=== PATIENT | female | born 1970 | race Caucasian/White ===

== ENCOUNTER 2018-05-26 20:58 | Inpatient (IN) | payer BC ==
[~2018-05-26] VITALS: Ht 165.1 cm; Wt 92.0 kg
[2018-05-26] MEDS ORDERED: KETOROLAC TROMETHAMINE 30 MG/ML VIAL IV STA (21:14)
[2018-05-26] MEDS ORDERED: ONDANSETRON INJ 2 MG/ML 2 ML VIAL IV STA (21:14)
[2018-05-26] MEDS ORDERED: SODIUM CHLORIDE 0.9% 1000ML 1,000 ML IV STA (21:14)
[2018-05-26 21:50] LABS: BASO % 0.1 %; BASO ABS # 0.01 K/uL (0-0.2); EOS % 1.5 %; EOS ABS # 0.12 K/uL (0-0.5); HEMATOCRIT 37.6 % (37-47); HEMOGLOBIN 12.7 g/dL (12.0-16.0); IG# 0.02 K/uL (0.00-0.02); LYMPH % 18.1 %; LYMPH ABS # 1.41 K/uL (1.2-3.4); MEAN CELL VOLUME 84.3 fL (80-100); MEAN CORPUSCULAR HEMOGLOBIN 28.5 pg (25-34); MEAN CORPUSCULAR HGB CONC 33.8 g/dl (32-36); MEAN PLATELET VOLUME 9.4 fL (7.4-10.4); MONO % 6.3 %; MONO ABS # 0.49 K/uL (0.11-0.59); NEUT % 73.7 %; NEUT ABS # 5.73 K/uL (1.4-6.5); PLATELET COUNT 193 K/uL (130-400); RED CELL DISTRIBUTION WIDTH CV 12.6 % (11.5-14.5); RED CELL DISTRIBUTION WIDTH SD 38.3 fL (36.4-46.3); WHITE BLOOD COUNT 7.78 K/uL (4.8-10.8)
[2018-05-26 22:01] LABS: ALBUMIN 3.6 gm/dl (3.4-5.0); CALCIUM 8.6 mg/dl (8.5-10.1); CREATININE 0.82 mg/dl (0.60-1.20); POTASSIUM 3.5 mmol/L (3.5-5.1)
[2018-05-26] MEDS ORDERED: NITR-5 PO (22:08)
[2018-05-26] MEDS ORDERED: PANT40TA PO (22:08)
[2018-05-26] MEDS ORDERED: PHEN-774 PO (22:08)
--- NOTE | 2018-05-26 22:19 | DIAGNOSTIC IMAGING REPORT ---
ADDENDUM IMPRESSION #5: Hepatosplenomegaly with hepatic steatosis. Electronically signed by: Vern Suarez M.D. 05/26/2018 10:35 PM Dictated Date/Time: 05/26/2018 10:35 PM ORIGINAL REPORT ABD/PELVIS WITHOUT FOR STONE HISTORY: 47 years-old Female flank pain acute bilateral flank pain COMPARISON: None available TECHNIQUE: Multiple axial CT images of the abdomen and pelvis were obtained without use of IV contrast. A dose lowering technique was used consistent with the principals of CARLEE. FINDINGS: Subsegmental groundglass and consolidative opacities about the left lung base is plugging noted within the left lower lobe. Mild right basilar atelectasis. 2 mm solid nodule of the basal right lower lobe, image 40 series 3 is likely benign. There is no pneumatosis or pneumoperitoneum identified. Imaged inferior cardiac chambers are unremarkable. Contracted gallbladder. Spleen measures up to 15 cm in length. Liver is enlarged and is mildly hypodense compared to the spleen. No intrahepatic biliary ductal dilation or focal hepatic mass lesions. Adrenal glands are unremarkable. There is mild stranding/edema noted about the distal pancreatic body and pancreatic tail with trace fluid noted within the anterior pararenal space. There is suggested mild interstitial edema about the pancreatic tail. No focal peripancreatic fluid collections or pancreatic ductal dilation. Kidneys, ureters are unremarkable. The bladder is partially decompressed. Prior hysterectomy. There are suggested follicular changes about the left adnexum. No aortic aneurysm. IVC appears unremarkable. There are no pathologically enlarged lymph nodes identified. Small duodenal diverticulum. No bowel obstruction or focal bowel wall thickening. Terminal ileum appears normal. The appendix is not definitively seen. No secondary signs of acute appendicitis. Tiny fat filled periumbilical hernia. Bones of the chest appear intact. IMPRESSION: 1. Mild edema within the anterior pararenal space, notably about the pancreatic tail suggests acute edematous pancreatitis. No acute pancreatic fluid collection identified. Correlate with lipase level. 2. No renal calculi or obstructive uropathy. 3. Mild mucous plugging of the left lower lobe with subsegmental groundglass opacities suggests atelectasis or pneumonitis. 4. Prior hysterectomy. The above report was generated using voice recognition software. It may contain grammatical, syntax or spelling errors. Electronically signed by: Vern Suarez M.D. 05/26/2018 10:18 PM Dictated Date/Time: 05/26/2018 10:06 PM
--- NOTE | 2018-05-26 22:38 | DIAGNOSTIC IMAGING REPORT ---
GALLBLADDER-ABD LIMITED HISTORY: 47 years-old Female abd pain nausea acute right upper quadrant abdominal pain with nausea COMPARISON: CT of same day TECHNIQUE: Multiple real-time sonographic images of the abdominal right upper quadrant were obtained assessing grayscale appearance and color flow FINDINGS: Pancreas is mostly obscured by bowel gas. Liver appears enlarged. There is increased echogenicity of the liver with poor through transmission compatible with fatty infiltration. No intrahepatic biliary ductal dilation. Common bile duct is normal, 4 mm. Contracted gallbladder. No shadowing cholelithiasis or pericholecystic fluid. Sonographic Sloan sign reported as negative. Imaged right kidney is unremarkable measuring up to 11.9 cm in length. IMPRESSION: 1. Contracted gallbladder without cholelithiasis or sonographic evidence of acute cholecystitis. 2. Hepatomegaly with hepatic steatosis. 3. No biliary ductal dilation. The above report was generated using voice recognition software. It may contain grammatical, syntax or spelling errors. Electronically signed by: Vern Suarez M.D. 05/26/2018 10:37 PM Dictated Date/Time: 05/26/2018 10:32 PM
[2018-05-26] MEDS ORDERED: PIPERACILLIN/TAZOBACTAM 3.375 GM/100ML D5W IV STA (22:58)
--- NOTE | 2018-05-26 23:19 | EMERGENCY ROOM VISIT NOTE ---
History First contact with patient: 21:07 Chief Complaint: GI ASSESSMENT Stated Complaint: BACK PAIN,STOMACH PAIN, NAUSEA,CONSTIPATION, CARDONA Nursing Triage Summary: c/o abd pain constipation uti symptoms and cardona. History of Present Illness The patient is a 47 year old female who presents to the Emergency Room with complaints of back pain for 1 week. The patient states P yesterday and told she had a urinary tract infection. She was started on Macrobid. She had a couple of doses. She reports some associated nausea with her symptoms. She also reports that her symptoms seem to worsen with p.o. intake and she gets a bloated and constipated feeling in her upper abdomen. Patient denies any fevers. No diarrhea. Her last normal bowel movement was 3-4 days ago. She reports decreased p.o. intake because of nausea and decreased appetite for the past couple of days. Symptoms are moderate. Review of Systems As above otherwise negative for 10 systems Past Medical/Surgical History None Social History Smoking Status: Never Smoker Current/Historical Medications Scheduled Nitrofurantoin Monohyd Macrocr (Macrobid), 100 MG PO Q6 Scheduled PRN Pantoprazole (Protonix), 40 MG PO QPM PRN for ACID REFLUX Phenazopyridine Hcl (Pyridium), 100 MG PO TID PRN for Bladder pain Physical Exam Vital Signs Date Time Temp Pulse Resp B/P (MAP) Pulse Ox O2 Delivery O2 Flow Rate FiO2 05/26/18 21:56 88 18 112/66 98 Room Air 05/26/18 21:02 36.7 85 18 115/62 95 Room Air Physical Exam CONSTITUTIONAL/VITAL SIGNS: Reviewed / noted above. GENERAL: Non-toxic in appearance. INTEGUMENTARY: Warm, dry, and [place]. HEAD: Normocephalic. EYES: without scleral icterus or trauma. ENT/OROPHARYNX: clear and moist. LYMPHADENOPATHY/NECK: Is supple without lymphadenopathy or meningismus. RESPIRATORY: Lungs clear and equal. CARDIOVASCULAR: Regular rate and rhythm. GI/ABDOMEN: Soft and nontender. No organomegaly or pulsatile mass. No rebound or guarding. Normal bowel sounds. EXTREMITIES: Warm and well perfused. BACK: No CVA tenderness. NEUROLOGICAL: Intact without focal deficits. PSYCHIATRIC: normal affect. MUSCULOSKELETAL: Normally developed with good muscle tone. TRIAGE NURSING DOCUMENTATION REVIEWED. Medical Decision & Procedures ER Provider Diagnostic Interpretation: CT ABD/Pelvis: IMPRESSION: 1. Mild edema within the anterior pararenal space, notably about the pancreatic tail suggests acute edematous pancreatitis. No acute pancreatic fluid collection identified. Correlate with lipase level. 2. No renal calculi or obstructive uropathy. 3. Mild mucous plugging of the left lower lobe with subsegmental groundglass opacities suggests atelectasis or pneumonitis. 4. Prior hysterectomy. GALLBLADDER-ABD LIMITED HISTORY: 47 years-old Female abd pain nausea acute right upper quadrant abdominal pain with nausea COMPARISON: CT of same day TECHNIQUE: Multiple real-time sonographic images of the abdominal right upper quadrant were obtained assessing grayscale appearance and color flow FINDINGS: Pancreas is mostly obscured by bowel gas. Liver appears enlarged. There is increased echogenicity of the liver with poor through transmission compatible with fatty infiltration. No intrahepatic biliary ductal dilation. Common bile duct is normal, 4 mm. Contracted gallbladder. No shadowing cholelithiasis or pericholecystic fluid. Sonographic Sloan sign reported as negative. Imaged right kidney is unremarkable measuring up to 11.9 cm in length. IMPRESSION: 1. Contracted gallbladder without cholelithiasis or sonographic evidence of acute cholecystitis. 2. Hepatomegaly with hepatic steatosis. 3. No biliary ductal dilation. Laboratory Results 05/26/18 21:29 Red Blood Count 4.46, Mean Corpuscular Volume 84.3, Mean Corpuscular Hemoglobin 28.5, Mean Corpuscular Hemoglobin Concent 33.8, Mean Platelet Volume 9.4, Neutrophils (%) (Auto) 73.7, Lymphocytes (%) (Auto) 18.1, Monocytes (%) (Auto) 6.3, Eosinophils (%) (Auto) 1.5, Basophils (%) (Auto) 0.1, Neutrophils # (Auto) 5.73, Lymphocytes # (Auto) 1.41, Monocytes # (Auto) 0.49, Eosinophils # (Auto) 0.12, Basophils # (Auto) 0.01 05/26/18 21:29 Test 05/26/18 21:29 White Blood Count 7.78 K/uL (4.8-10.8) Red Blood Count 4.46 M/uL (4.2-5.4) Hemoglobin 12.7 g/dL (12.0-16.0) Hematocrit 37.6 % (37-47) Mean Corpuscular Volume 84.3 fL (80-100) Mean Corpuscular Hemoglobin 28.5 pg (25-34) Mean Corpuscular Hemoglobin Concent 33.8 g/dl (32-36) Platelet Count 193 K/uL (130-400) Mean Platelet Volume 9.4 fL (7.4-10.4) Neutrophils (%) (Auto) 73.7 % Lymphocytes (%) (Auto) 18.1 % Monocytes (%) (Auto) 6.3 % Eosinophils (%) (Auto) 1.5 % Basophils (%) (Auto) 0.1 % Neutrophils # (Auto) 5.73 K/uL (1.4-6.5) Lymphocytes # (Auto) 1.41 K/uL (1.2-3.4) Monocytes # (Auto) 0.49 K/uL (0.11-0.59) Eosinophils # (Auto) 0.12 K/uL (0-0.5) Basophils # (Auto) 0.01 K/uL (0-0.2) RDW Standard Deviation 38.3 fL (36.4-46.3) RDW Coefficient of Variation 12.6 % (11.5-14.5) Immature Granulocyte % (Auto) 0.3 % Immature Granulocyte # (Auto) 0.02 K/uL (0.00-0.02) Urine Color ORANGE Urine Appearance CLOUDY (CLEAR) Urine pH 5.0 (4.5-7.5) Urine Specific [place] 1.024 (1.000-1.030) Urine Protein TRACE (NEG) Urine Glucose (UA) NEG (NEG) Urine Ketones NEG (NEG) Urine Occult Blood NEG (NEG) Urine Nitrite POS (NEG) Urine Bilirubin NEG (NEG) Urine Urobilinogen NEG (NEG) Urine Leukocyte Esterase MODERATE (NEG) Urine WBC (Auto) 10-30 /hpf (0-5) Urine RBC (Auto) 0-4 /hpf (0-4) Urine Hyaline Casts (Auto) 1-5 /lpf (0-5) Urine Epithelial Cells (Auto) >30 /lpf (0-5) Urine Bacteria (Auto) NEG (NEG) Urine Yeast (Auto) BUDDING (NONE PRSENT) Urine Test NEG (NEG) Anion Gap 9.0 mmol/L (3-11) Est Creatinine Clear Calc Drug Dose 96.1 ml/min Estimated GFR () 99.5 Estimated GFR (Non- 85.8 BUN/Creatinine Ratio 12.6 (10-20) Calcium Level 8.6 mg/dl (8.5-10.1) Total Bilirubin 0.5 mg/dl (0.2-1) Direct Bilirubin 0.1 mg/dl (0-0.2) Aspartate Amino Transf (AST/SGOT) 39 U/L (15-37) Alanine Aminotransferase (ALT/SGPT) 79 U/L (12-78) Alkaline Phosphatase 80 U/L (45-117) Total Protein 7.0 gm/dl (6.4-8.2) Albumin 3.6 gm/dl (3.4-5.0) Lipase 2238 U/L (73-393) Medications Administered Medications (Trade) Dose Ordered Sig/Rere Route Start Time Stop Time Status Last Admin Dose Admin Sodium Chloride 1,000 ml @ 999 mls/hr Q1H1M STAT IV 05/26/18 21:14 05/26/18 22:14 DC 05/26/18 21:31 999 MLS/HR Ondansetron HCl (Zofran Inj) 4 mg NOW STAT IV 05/26/18 21:14 05/26/18 21:17 DC 05/26/18 21:31 4 MG Ketorolac Tromethamine (Toradol Inj) 15 mg NOW STAT IV 05/26/18 21:14 05/26/18 21:17 DC 05/26/18 21:31 15 MG ED Course The patient was given IV fluids, IV Zofran, IV Toradol and IV Zosyn. Medical Decision Differential considered: pancreatitis, hepatitis, acute cholecystitis, AAA, UTI , pyelonephritis, kidney stones, appendicitis, diverticulitis, shingles, bowel obstruction, mesenteric ischemia, intussusception,hernia. The patient is a 47 year old female who presents to the Emergency Room with complaints of back pain for 1 week. The patient states P yesterday and told she had a urinary tract infection. She was started on Macrobid. She had a couple of doses. She reports some associated nausea with her symptoms. She also reports that her symptoms seem to worsen with p.o. intake and she gets a bloated and constipated feeling in her upper abdomen. Patient denies any fevers. No diarrhea. Her last normal bowel movement was 3-4 days ago. She reports decreased p.o. intake because of nausea and decreased appetite for the past couple of days. Gallbladder ultrasound was negative, CT scan of the abdomen pelvis reveals findings suggesting mild pancreatitis in the tail the pancreas. Lipase was elevated at 2238. AST and ALT are slightly elevated. CBC was normal, test was negative. Urine reveals positive nitrite but no bacteria. This could be related to a partially treated UTI. The patient was given IV dose of Zosyn for this. She was also given some IV fluids , IV Toradol and IV Zofran for her symptoms. She will be seen by the hospitalist service for further inpatient evaluation. Medication Reconcilliation Current Medication List: was personally reviewed by dc Blood Pressure Screening Patient's blood pressure: Normal blood pressure Impression Primary Impression: Pancreatitis Additional Impression: UTI (urinary tract infection) Departure Information Dispostion Being Evaluated By Hospitalist Referrals Micah Paulson D.O. (PCP) Patient Instructions My [facility] Problem Qualifiers
[2018-05-26] MEDS ORDERED: MoRPHine SULFATE 2 MG/ML CARP IV PRN (23:45)
[2018-05-26] MEDS ORDERED: ONDANSETRON INJ 2 MG/ML 2 ML VIAL IV PRN (23:45)
--- NOTE | 2018-05-27 00:10 | History and Physical ---
History & Physical Date & Time of Service: May 26, 2018 at 23:55 Chief Complaint: Back Pain,Stomach Pain, Nausea,Constipation, Ramírez Primary Care Physician: Micah Paulson D.O. History of Present Illness Source: patient Patient is a 47yo female with history of GERD presenting with back and abdominal pain x 1 week as well as bloating, nausea and constipation. Symptoms worsen with po intake. She also feels bloating and fullness in her upper abdomen. Patient has been seen by her PCP recently and diagnosed with a UTI. She was started on Ciprofloxacin which she took for three days and was transitioned to Macrobid q 6 hours yesterday and Pyridium. Her pain now is predominantly left flank with radiation to under left breast. CT Abdomen was performed in the ER which revealed edema around the pancreatic tail suggestive of acute pancreatitis. No fluid collection. Lipase elevated at 2238. Patient has no history of gallbladder disease, does not drink EtOH. Presently feeling well. Pain improved. ER Course: Zosyn 3.375 gm, NSS x 1 liter, Zofran 4mg, Toradol Past Medical/Surgical History Past Medical History: GERD Past Surgical History: Hysterectomy for DUB and endometriosis Right knee Breast reduction Family History FH: cancer FH: diabetes mellitus Valvular heart disease Social History Smoking Status: Never Smoker Smokeless Tobacco Use: No Alcohol Use: none Drug Use: none Marital Status: Housing status: lives with family Occupational Status: employed Allergies Coded Allergies: No Known Allergies (Unverified , 05/26/18) Home Medications Scheduled Nitrofurantoin Monohyd Macrocr (Macrobid), 100 MG PO Q6 Scheduled PRN Pantoprazole (Protonix), 40 MG PO QPM PRN for ACID REFLUX Phenazopyridine Hcl (Pyridium), 100 MG PO TID PRN for Bladder pain Review of Systems Constitutional: No fever, No chills, No sweats, No weight loss, No weakness, No fatigue Eyes: No worsening of vision ENT: No hearing loss Respiratory: No cough, No sputum, No wheezing, No shortness of breath Cardiovascular: No chest pain, No palpitations Abdomen: + pain, + nausea, + constipation, No vomiting, No diarrhea Musculoskeletal: No joint pain Genitourinary - Female: No dysuria, No urinary frequency, No urinary urgency Neurologic: No weakness Endocrine: No fatigue Hematologic / Lymphatic: No abnormal bleeding/bruising Integumentary: No rash Physical Exam Vital Signs Date Time Temp Pulse Resp B/P (MAP) Pulse Ox O2 Delivery O2 Flow Rate FiO2 05/26/18 23:13 84 18 106/67 95 Room Air 05/26/18 21:56 88 18 112/66 98 Room Air 05/26/18 21:02 36.7 85 18 115/62 95 Room Air General Appearance: WD/WN, no apparent distress Head: normocephalic, atraumatic Eyes: PERRL, EOMI, sclerae normal ENT: normal ENT inspection, pharynx normal Neck: supple, no adenopathy, trachea midline Respiratory/Chest: chest non-tender, lungs clear, normal breath sounds, no respiratory distress, no accessory muscle use Cardiovascular: regular rate, rhythm, no edema, no gallop, no murmur, normal peripheral pulses Abdomen/GI: normal bowel sounds, soft, no organomegaly, + pertinent finding ( tenderness with palpation of LUQ and flank, no rebound/guarding or peritoneal signs) Diagnostics Laboratory Results Results Past 24 Hours Test 05/26/18 21:29 Range/Units White Blood Count 7.78 4.8-10.8 K/uL Red Blood Count 4.46 4.2-5.4 M/uL Hemoglobin 12.7 12.0-16.0 g/dL Hematocrit 37.6 37-47 % Mean Corpuscular Volume 84.3 80-100 fL Mean Corpuscular Hemoglobin 28.5 25-34 pg Mean Corpuscular Hemoglobin Concent 33.8 32-36 g/dl Platelet Count 193 130-400 K/uL Mean Platelet Volume 9.4 7.4-10.4 fL Neutrophils (%) (Auto) 73.7 % Lymphocytes (%) (Auto) 18.1 % Monocytes (%) (Auto) 6.3 % Eosinophils (%) (Auto) 1.5 % Basophils (%) (Auto) 0.1 % Neutrophils # (Auto) 5.73 1.4-6.5 K/uL Lymphocytes # (Auto) 1.41 1.2-3.4 K/uL Monocytes # (Auto) 0.49 0.11-0.59 K/uL Eosinophils # (Auto) 0.12 0-0.5 K/uL Basophils # (Auto) 0.01 0-0.2 K/uL RDW Standard Deviation 38.3 36.4-46.3 fL RDW Coefficient of Variation 12.6 11.5-14.5 % Immature Granulocyte % (Auto) 0.3 % Immature Granulocyte # (Auto) 0.02 0.00-0.02 K/uL Urine Color ORANGE Urine Appearance CLOUDY CLEAR Urine pH 5.0 4.5-7.5 Urine Specific [place] 1.024 1.000-1.030 Urine Protein TRACE NEG Urine Glucose (UA) NEG NEG Urine Ketones NEG NEG Urine Occult Blood NEG NEG Urine Nitrite POS NEG Urine Bilirubin NEG NEG Urine Urobilinogen NEG NEG Urine Leukocyte Esterase MODERATE NEG Urine WBC (Auto) 10-30 0-5 /hpf Urine RBC (Auto) 0-4 0-4 /hpf Urine Hyaline Casts (Auto) 1-5 0-5 /lpf Urine Epithelial Cells (Auto) >30 0-5 /lpf Urine Bacteria (Auto) NEG NEG Urine Yeast (Auto) BUDDING NONE PRSENT Urine Test NEG NEG Sodium Level 141 136-145 mmol/L Potassium Level 3.5 3.5-5.1 mmol/L Chloride Level 105 98-107 mmol/L Carbon Dioxide Level 26 21-32 mmol/L Anion Gap 9.0 3-11 mmol/L Blood Urea Nitrogen 10 7-18 mg/dl Creatinine 0.82 0.60-1.20 mg/dl Est Creatinine Clear Calc Drug Dose 96.1 ml/min Estimated GFR () 99.5 Estimated GFR (Non- 85.8 BUN/Creatinine Ratio 12.6 10-20 Random Glucose 135 70-99 mg/dl Calcium Level 8.6 8.5-10.1 mg/dl Total Bilirubin 0.5 0.2-1 mg/dl Direct Bilirubin 0.1 0-0.2 mg/dl Aspartate Amino Transf (AST/SGOT) 39 15-37 U/L Alanine Aminotransferase (ALT/SGPT) 79 12-78 U/L Alkaline Phosphatase 80 45-117 U/L Total Protein 7.0 6.4-8.2 gm/dl Albumin 3.6 3.4-5.0 gm/dl Lipase 2238 73-393 U/L Microbiology Results 05/26/18 Urine Culture, Received Pending Impression Assessment and Plan 47yo female with history of GERD presenting with back and abdominal pain found with acute pancreatitis 1. Acute Pancreatitis - elevated lipase, CT evidence of pancreatic tail inflammation. Etiology unclear. Patient with no gallstones, no EtOH. Was recently treated for UTI with Cipro then Macrobid and Pyridium - possibly medication induced but occurrence of Macrobid induced pancreatitis is low -Admit to medical floor -NPO except chips and sips for now - advance diet as tolerated -Pain control with Morphin 1mg IV q 4 hours PRN -Nausea control with Zofran PRN 2. Presumed UTI - Nitrite positive UA, patient with mild suprapubic discomfort -Check urine culture -Ceftriaxone 1 gm IV daily for uncomplicated UTI 3. GERD - stable, chronic -Protonix 40mg IV daily. 4. F/E/N- NSS at 100mL/hr x 2 liters, monitor electrolytes and replete as needed, NPO for now, advance diet as tolerated 5. Ppx - Lovenox for DVT prophylaxis 6. Code - Full per discussion with patient 7. Dispo - admit to medical floor Resuscitation Status FULL VTE Prophylaxis Will order VTE Prophylaxis: Yes
[2018-05-27 01:45] VITALS: BP 98/59; PULSE 69; TEMP 36.5; O2SAT 95; Ht 165.1 cm; Wt 92.0 kg
[2018-05-27] MEDS: SODIUM CHLORIDE 0.9% 1000ML 1,000 ML IV SCH ×2 (02:44→08:36)
[2018-05-27] MEDS: CEFTRIAXONE SOD INJ 1 GM in DEXTROSE 5% ADD-VANTAGE 50ML 50 ML IV SCH (05:38)
[2018-05-27] MEDS ORDERED: IV FLUIDS COMPLETED PRN (06:30)
[2018-05-27 06:38] LABS: BASO % 0.3 %; BASO ABS # 0.02 K/uL (0-0.2); EOS % 2.4 %; EOS ABS # 0.18 K/uL (0-0.5); HEMATOCRIT 35.6 % (37-47); HEMOGLOBIN 11.6 g/dL (12.0-16.0); IG# 0.03 K/uL (0.00-0.02); LYMPH % 17.3 %; LYMPH ABS # 1.31 K/uL (1.2-3.4); MEAN CELL VOLUME 85.6 fL (80-100); MEAN CORPUSCULAR HEMOGLOBIN 27.9 pg (25-34); MEAN CORPUSCULAR HGB CONC 32.6 g/dl (32-36); MEAN PLATELET VOLUME 9.3 fL (7.4-10.4); MONO % 6.9 %; MONO ABS # 0.52 K/uL (0.11-0.59); NEUT % 72.7 %; NEUT ABS # 5.52 K/uL (1.4-6.5); PLATELET COUNT 171 K/uL (130-400); RED CELL DISTRIBUTION WIDTH CV 12.7 % (11.5-14.5); RED CELL DISTRIBUTION WIDTH SD 39.4 fL (36.4-46.3); WHITE BLOOD COUNT 7.58 K/uL (4.8-10.8)
[2018-05-27 07:06] VITALS: BP 118/64; PULSE 86; TEMP 36.9; O2SAT 95
[2018-05-27 07:07] LABS: CREATININE 0.88 mg/dl (0.60-1.20)
[2018-05-27 07:08] LABS: CALCIUM 7.9 mg/dl (8.5-10.1); POTASSIUM 4.2 mmol/L (3.5-5.1)
[2018-05-27] MEDS: ENOXAPARIN 40 MG/0.4 ML SYR SQ SCH (08:33)
[2018-05-27] MEDS: PANTOprazole INJ 40 MG in SYRINGE 0 ML IV SCH (11:24)
--- NOTE | 2018-05-27 11:29 | Progress Note ---
Subjective Date of Service: May 27, 2018. Subjective Pt evaluation today including: conversation w/ patient, physical exam 47 yo female who is here for back pain likely from pancreatitis. Patient reports pain has improved today, however today when I was examining her she states that the pain returned. Pain however is short lived and less severe. She reports the pain radiates from her back and wraps around her ribs to the front of her abdomen (epigastrium) Patient reports that she is also constipated and has not had BM in last 4 days. Problem List Medical Problems: (1) Pancreatitis Status: Acute (2) UTI (urinary tract infection) Status: Acute Review of Systems Constitutional: No fever, No chills Eyes: No worsening of vision ENT: No hearing loss Respiratory: No cough Cardiac: No chest pain Abdomen: No pain, No nausea Musculoskeletal: + problem reported (back pain) Female : No dysuria Neurologic: No memory loss Psychiatric: No depression symptoms Heme: No abnormal bleeding/bruising Skin: No rash All Other Systems: Reviewed and Negative Objective Vital Signs Date Time Temp Pulse Resp B/P (MAP) Pulse Ox O2 Delivery O2 Flow Rate FiO2 05/27/18 08:00 Room Air 05/27/18 07:06 36.9 86 18 118/64 (82) 95 Room Air 05/27/18 01:45 36.5 69 20 98/59 95 Room Air 05/27/18 00:56 76 18 107/71 98 05/26/18 23:13 84 18 106/67 95 Room Air 05/26/18 21:56 88 18 112/66 98 Room Air 05/26/18 21:02 36.7 85 18 115/62 95 Room Air Physical Exam General Appearance: WD/WN, no apparent distress Eyes: normal inspection ENT: normal ENT inspection Neck: supple, no adenopathy Respiratory/Chest: chest non-tender, lungs clear Cardiovascular: regular rate, rhythm, no edema Abdomen: normal bowel sounds, non tender, soft Extremities: normal range of motion, non-tender Skin: normal color Lymphatic: no adenopathy Laboratory Results Last 24 Hours Test 05/26/18 21:29 05/27/18 06:06 White Blood Count 7.78 K/uL 7.58 K/uL Red Blood Count 4.46 M/uL 4.16 M/uL Hemoglobin 12.7 g/dL 11.6 g/dL Hematocrit 37.6 % 35.6 % Mean Corpuscular Volume 84.3 fL 85.6 fL Mean Corpuscular Hemoglobin 28.5 pg 27.9 pg Mean Corpuscular Hemoglobin Concent 33.8 g/dl 32.6 g/dl Platelet Count 193 K/uL 171 K/uL Mean Platelet Volume 9.4 fL 9.3 fL Neutrophils (%) (Auto) 73.7 % 72.7 % Lymphocytes (%) (Auto) 18.1 % 17.3 % Monocytes (%) (Auto) 6.3 % 6.9 % Eosinophils (%) (Auto) 1.5 % 2.4 % Basophils (%) (Auto) 0.1 % 0.3 % Neutrophils # (Auto) 5.73 K/uL 5.52 K/uL Lymphocytes # (Auto) 1.41 K/uL 1.31 K/uL Monocytes # (Auto) 0.49 K/uL 0.52 K/uL Eosinophils # (Auto) 0.12 K/uL 0.18 K/uL Basophils # (Auto) 0.01 K/uL 0.02 K/uL RDW Standard Deviation 38.3 fL 39.4 fL RDW Coefficient of Variation 12.6 % 12.7 % Immature Granulocyte % (Auto) 0.3 % 0.4 % Immature Granulocyte # (Auto) 0.02 K/uL 0.03 K/uL Urine Color ORANGE Urine Appearance CLOUDY Urine pH 5.0 Urine Specific [place] 1.024 Urine Protein TRACE Urine Glucose (UA) NEG Urine Ketones NEG Urine Occult Blood NEG Urine Nitrite POS Urine Bilirubin NEG Urine Urobilinogen NEG Urine Leukocyte Esterase MODERATE Urine WBC (Auto) 10-30 /hpf Urine RBC (Auto) 0-4 /hpf Urine Hyaline Casts (Auto) 1-5 /lpf Urine Epithelial Cells (Auto) >30 /lpf Urine Bacteria (Auto) NEG Urine Yeast (Auto) BUDDING Urine Test NEG Sodium Level 141 mmol/L 141 mmol/L Potassium Level 3.5 mmol/L 4.2 mmol/L Chloride Level 105 mmol/L 110 mmol/L Carbon Dioxide Level 26 mmol/L 25 mmol/L Anion Gap 9.0 mmol/L 6.0 mmol/L Blood Urea Nitrogen 10 mg/dl 12 mg/dl Creatinine 0.82 mg/dl 0.88 mg/dl Est Creatinine Clear Calc Drug Dose 96.1 ml/min 89.5 ml/min Estimated GFR () 99.5 91.3 Estimated GFR (Non- 85.8 78.8 BUN/Creatinine Ratio 12.6 13.2 Random Glucose 135 mg/dl 133 mg/dl Calcium Level 8.6 mg/dl 7.9 mg/dl Phosphorus Level 5.0 mg/dl Magnesium Level 2.2 mg/dl Total Bilirubin 0.5 mg/dl Direct Bilirubin 0.1 mg/dl Aspartate Amino Transf (AST/SGOT) 39 U/L Alanine Aminotransferase (ALT/SGPT) 79 U/L Alkaline Phosphatase 80 U/L Total Protein 7.0 gm/dl Albumin 3.6 gm/dl Lipase 2238 U/L Prothrombin Time 10.1 SECONDS Prothromb Time International Ratio 1.0 Assessment and Plan 47yo female with history of GERD presenting with back and abdominal pain found with acute pancreatitis 1. Acute Pancreatitis - elevated lipase, CT evidence of pancreatic tail inflammation. Etiology unclear. Patient with no gallstones, no EtOH. Was recently treated for UTI with Cipro then Macrobid and Pyridium - possibly medication induced but occurrence of Macrobid induced pancreatitis is low -Admit to medical floor -NPO except chips and sips for now - advance diet as tolerated -Pain control with Morphin 1mg IV q 4 hours PRN -Nausea control with Zofran PRN -patient continues to have pain today but is less severe. Will transition her to clear liquid diet at dinner. Likely discharge in AM. Will also start miralax for constipation -may consider lactulose tomorrow if no BM. 2. Presumed UTI - Nitrite positive UA, patient with mild suprapubic discomfort -Checked urine culture -Ceftriaxone 1 gm IV daily for uncomplicated UTI 3. GERD - stable, chronic -Protonix 40mg IV daily. 4. F/E/N- NSS at 100mL/hr x 2 liters, monitor electrolytes and replete as needed, NPO for now, clear liquid for dinner, advance diet as tolerated 5. Ppx - Lovenox for DVT prophylaxis 6. Code - Full per discussion with patient
[2018-05-27] MEDS ORDERED: NURSING DECISION MEDICATION ORDER SCH (11:30)
[2018-05-27] MEDS ORDERED: POLYETHYLENE (MIRALAX) 17 GM PACK PO ONE (11:45)
[2018-05-27] MEDS ORDERED: POLYETHYLENE (MIRALAX) 17 GM PACK PO PRN (11:45)
[2018-05-27 15:19] VITALS: BP 101/66; PULSE 32; PULSE 82; TEMP 36.9; O2SAT 96
[2018-05-27 23:08] VITALS: BP 98/60; PULSE 78; TEMP 36.6; O2SAT 96
[2018-05-27] MEDS: KETOROLAC TROMETHAMINE 15 MG/ML VIAL IV PRN (23:32)
[2018-05-28] MEDS: CEFTRIAXONE SOD INJ 1 GM in DEXTROSE 5% ADD-VANTAGE 50ML 50 ML IV SCH (06:04)
[2018-05-28 07:51] VITALS: BP 104/72; PULSE 70; TEMP 36.7; O2SAT 97
[2018-05-28 08:41] LABS: BASO % 0.2 %; BASO ABS # 0.01 K/uL (0-0.2); EOS % 2.5 %; EOS ABS # 0.14 K/uL (0-0.5); HEMATOCRIT 36.6 % (37-47); HEMOGLOBIN 12.1 g/dL (12.0-16.0); IG# 0.02 K/uL (0.00-0.02); LYMPH % 14.5 %; LYMPH ABS # 0.81 K/uL (1.2-3.4); MEAN CELL VOLUME 85.7 fL (80-100); MEAN CORPUSCULAR HEMOGLOBIN 28.3 pg (25-34); MEAN CORPUSCULAR HGB CONC 33.1 g/dl (32-36); MEAN PLATELET VOLUME 9.1 fL (7.4-10.4); MONO % 4.8 %; MONO ABS # 0.27 K/uL (0.11-0.59); NEUT % 77.6 %; NEUT ABS # 4.32 K/uL (1.4-6.5); PLATELET COUNT 167 K/uL (130-400); RED CELL DISTRIBUTION WIDTH CV 12.5 % (11.5-14.5); RED CELL DISTRIBUTION WIDTH SD 39.1 fL (36.4-46.3); WHITE BLOOD COUNT 5.57 K/uL (4.8-10.8)
[2018-05-28] MEDS: ENOXAPARIN 40 MG/0.4 ML SYR SQ SCH (08:42)
[2018-05-28 09:12] LABS: CALCIUM 8.4 mg/dl (8.5-10.1); CREATININE 0.83 mg/dl (0.60-1.20); POTASSIUM 3.7 mmol/L (3.5-5.1); TOTAL PROTEIN 6.4 gm/dl (6.4-8.2)
[2018-05-28] MEDS ORDERED: SOD PHOSPHATE/SOD BIPHOSPHATE ENEMA 132 ML BTL PR STA (11:10)
[2018-05-28] MEDS: SODIUM CHLORIDE 0.9% 1000ML 1,000 ML IV SCH ×3 (11:32→23:36)
[2018-05-28] MEDS: PANTOprazole INJ 40 MG in SYRINGE 0 ML IV SCH (11:32)
[2018-05-28] MEDS ORDERED: FLUCONAZOLE / NSS 100 MG in PREMIXED NSS 50 ML IV ONE (15:30)
[2018-05-28 15:38] VITALS: BP 112/73; PULSE 75; TEMP 36.8; O2SAT 94
--- NOTE | 2018-05-28 15:38 | Progress Note ---
Subjective Date of Service: May 28, 2018. Subjective Pt evaluation today including: conversation w/ patient, physical exam, lab review, review of inpatient medication list Pain: mild back pain and abdominal pain PO Intake: clear liquids Voiding: no voiding problems patient feeling okay but not a lot better, still with the back pain that she presented with felt nauseated with trying clears, had a severe headache reviewed labs, lipase trending down but still high at 1690 checked triglycerides, normal urine culture grew out Melony, changed Rocephin to Diflucan Problem List Medical Problems: (1) Pancreatitis Status: Acute (2) UTI (urinary tract infection) Status: Acute Review of Systems Constitutional: + weakness, + fatigue Abdomen: + pain, + nausea Musculoskeletal: + joint pain (middle back pain) Female : + dysuria All Other Systems: Reviewed and Negative Medications Current Inpatient Medications Medications (Trade) Dose Ordered Sig/Rere Route Start Time Stop Time Status Last Admin Dose Admin Enoxaparin Sodium (Lovenox Inj) 40 mg Q24H SQ 05/27/18 09:00 06/26/18 08:59 05/27/18 08:33 40 MG Ondansetron HCl (Zofran Inj) 4 mg Q6H PRN IV 05/26/18 23:45 06/25/18 23:44 Morphine Sulfate (MoRPHine SULFATE INJ) 1 mg Q4 PRN IV 05/26/18 23:45 06/09/18 23:44 Ceftriaxone Sodium 1 gm/ Dextrose 50 ml @ 100 mls/hr Q24H IV 05/27/18 06:00 06/01/18 05:59 05/28/18 06:04 100 MLS/HR Pantoprazole Sodium 40 mg/ Syringe 10 ml @ 5 mls/min DAILY@11 IV 05/27/18 11:00 06/26/18 10:59 05/28/18 11:32 5 MLS/MIN Miscellaneous (Iv Fluids Completed) 1 ea PRN PRN N/A 05/27/18 06:30 05/27/19 06:29 Polyethylene (Miralax Powder Packet) 17 gm DAILY PRN PO 05/27/18 11:45 06/26/18 11:44 Ketorolac Tromethamine (Toradol Inj) 15 mg Q6H PRN IV 05/27/18 22:45 06/01/18 22:44 05/27/18 23:32 15 MG Sodium Chloride 1,000 ml @ 200 mls/hr Q5H IV 05/28/18 11:15 06/27/18 11:14 05/28/18 11:32 200 MLS/HR Objective Vital Signs Date Time Temp Pulse Resp B/P (MAP) Pulse Ox O2 Delivery O2 Flow Rate FiO2 05/28/18 08:00 Room Air 05/28/18 07:51 36.7 70 18 104/72 (83) 97 Room Air 05/28/18 00:00 Room Air 05/27/18 23:08 36.6 78 18 98/60 (73) 96 Room Air 05/27/18 19:00 Room Air 05/27/18 15:19 36.9 82 18 101/66 (78) 96 Room Air Physical Exam General Appearance: WD/WN, no apparent distress Eyes: normal inspection, EOMI, sclerae normal ENT: normal ENT inspection, hearing grossly normal, pharynx normal Neck: supple, no adenopathy, no JVD, trachea midline Respiratory/Chest: chest non-tender, lungs clear, normal breath sounds, no respiratory distress, no accessory muscle use Cardiovascular: regular rate, rhythm, no edema, no gallop, no JVD, no murmur Abdomen: normal bowel sounds, soft, no organomegaly, + tenderness (epigastric, no rebound or rigidity) Extremities: normal range of motion, non-tender, normal inspection, no pedal edema, no calf tenderness, pelvis stable 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, no motor/sensory deficits, alert, normal mood/affect, oriented x 3 Skin: normal color, warm/dry, no rash Laboratory Results Last 24 Hours Test 05/28/18 08:30 White Blood Count 5.57 K/uL Red Blood Count 4.27 M/uL Hemoglobin 12.1 g/dL Hematocrit 36.6 % Mean Corpuscular Volume 85.7 fL Mean Corpuscular Hemoglobin 28.3 pg Mean Corpuscular Hemoglobin Concent 33.1 g/dl Platelet Count 167 K/uL Mean Platelet Volume 9.1 fL Neutrophils (%) (Auto) 77.6 % Lymphocytes (%) (Auto) 14.5 % Monocytes (%) (Auto) 4.8 % Eosinophils (%) (Auto) 2.5 % Basophils (%) (Auto) 0.2 % Neutrophils # (Auto) 4.32 K/uL Lymphocytes # (Auto) 0.81 K/uL Monocytes # (Auto) 0.27 K/uL Eosinophils # (Auto) 0.14 K/uL Basophils # (Auto) 0.01 K/uL RDW Standard Deviation 39.1 fL RDW Coefficient of Variation 12.5 % Immature Granulocyte % (Auto) 0.4 % Immature Granulocyte # (Auto) 0.02 K/uL Sodium Level 140 mmol/L Potassium Level 3.7 mmol/L Chloride Level 107 mmol/L Carbon Dioxide Level 24 mmol/L Anion Gap 9.0 mmol/L Blood Urea Nitrogen 7 mg/dl Creatinine 0.83 mg/dl Est Creatinine Clear Calc Drug Dose 94.9 ml/min Estimated GFR () 98.0 Estimated GFR (Non- 84.6 BUN/Creatinine Ratio 8.2 Random Glucose 168 mg/dl Calcium Level 8.4 mg/dl Total Bilirubin 0.5 mg/dl Aspartate Amino Transf (AST/SGOT) 39 U/L Alanine Aminotransferase (ALT/SGPT) 66 U/L Alkaline Phosphatase 72 U/L Total Protein 6.4 gm/dl Albumin 3.0 gm/dl Globulin 3.4 gm/dl Albumin/Globulin Ratio 0.9 Triglycerides Level 136 mg/dl Lipase 1690 U/L Assessment and Plan 47yo female with history of GERD presenting with back and abdominal pain found with acute pancreatitis 1. Acute Pancreatitis - elevated lipase, CT evidence of pancreatic tail inflammation. Etiology unclear. Patient with no gallstones, no EtOH. Normal triglycerides. Was recently treated for UTI with Cipro then Macrobid and Pyridium - possibly medication induced but occurrence of Macrobid induced pancreatitis is low still with middle back pain, abdominal discomfort on exam resume NSS at 200cc/hr for the next 24 hours lipase still high at 1690, repeat in the AM appetite not great, clear liquids caused nausea and headache hopeful for improvement tomorrow, repeat labs in the morning 2. Melony UTI stop Rocephin, change to Diflucan 3. GERD - stable, chronic -Protonix 40mg IV daily. 4. Constipation: still no BM, passing flatus continue Miralax try Enema today, suppository did not work 5. Ppx - Lovenox for DVT prophylaxis 6. Code - Full per discussion with patient
[2018-05-28] MEDS: KETOROLAC TROMETHAMINE 15 MG/ML VIAL IV PRN ×2 (15:55→23:41)
[2018-05-28] MEDS ORDERED: NURSING VERBAL MED ORDER ONE (19:15)
[2018-05-29] VITALS: BP 94/58; PULSE 78; TEMP 37; O2SAT 95
[2018-05-29] MEDS: SODIUM CHLORIDE 0.9% 1000ML 1,000 ML IV SCH ×2 (04:40→10:52)
[2018-05-29 07:27] LABS: ALBUMIN 2.8 gm/dl (3.4-5.0); CALCIUM 7.8 mg/dl (8.5-10.1); CREATININE 0.69 mg/dl (0.60-1.20); POTASSIUM 4.1 mmol/L (3.5-5.1); TOTAL PROTEIN 5.7 gm/dl (6.4-8.2)
[2018-05-29 07:43] VITALS: BP 113/75; PULSE 67; TEMP 36.4; O2SAT 97
[2018-05-29] MEDS: ENOXAPARIN 40 MG/0.4 ML SYR SQ SCH (07:55)
[2018-05-29] MEDS ORDERED: FLUCONAZOLE / NSS 100 MG in PREMIXED NSS 50 ML IV SCH (09:00)
[2018-05-29] MEDS: PANTOprazole INJ 40 MG in SYRINGE 0 ML IV SCH (10:52)
[2018-05-29] MEDS ORDERED: MTR400 PO (13:15)
[2018-05-29] MEDS ORDERED: MRLP17X PO (13:15)
[2018-05-29] MEDS ORDERED: FLUC100T4 PO (13:15)
--- NOTE | 2018-05-29 13:26 | Discharge Instructions ---
Discharge Instructions Date of Service May 29, 2018. Admission Reason for Admission: Pancreatitis Discharge Discharge Diagnosis / Problem: Acute pancreatitis, idiopathic, Melony UTI Discharge Goals Goal(s): Decrease discomfort, Improve function Activity Recommendations Activity Limitations: resume your previous activity . Instructions / Follow-Up Instructions / Follow-Up Medications: - MIRALAX: use as needed daily for constipation in the future - IBUPROFEN: use as needed for headache, if 400mg not enough then you can use 600mg - FLUCONAZOLE: anti-fungal medication to treat Melony UTI, need 6 more days Acute pancreatitis: resolving, less pain and tolerating diet treated with aggressive IV hydration continue to drink a lot of water for the next several days advance diet slowly, avoid meals with lots of fat as we discussed, no clear cause, perhaps medication induced with Macrobid no gall stones on imaging, no heavy alcohol use, normal triglycerides if due to medication then this will be self limiting and should completely resolve in next few days Melony (fungal) UTI: treat with fluconazole for 6 days Hepatic steatosis: fatty liver changes common in the due to diet best way to treat fatty liver changes is low fat diet and weight loss simple goal would be 10% of body weight, 20lbs FOLLOW UP - Dr. Paulson in one week, call for appointment for hospital follow up Current Hospital Diet Patient's current hospital diet: Low Fiber Diet Discharge Diet Recommended Diet: Low Fat Diet Procedures Procedures Performed: none Pending Studies Studies pending at discharge: no Laboratory Results Lipid Panel Test 05/28/18 08:30 Range/Units Triglycerides Level 136 0-150 mg/dl Medical Emergencies . Who to Call and When: Medical Emergencies: If at any time you feel your situation is an emergency, please call 911 immediately. . Non-Emergent Contact Non-Emergency issues call your: Primary Care Provider Call Non-Emergent contact if: your pain is worsening, your pain is concerning you, you have any medication questions . . "Provider Documentation" section prepared by Nando Ha. . [place] Drug Monitoring Program Search Results: no issues identified
[2018-05-29 13:55] VITALS: BP 113/75; PULSE 67; TEMP 36.4; O2SAT 97
--- NOTE | 2018-05-31 13:38 | Discharge Summary ---
Discharge Summary Date of Service May 29, 2018. Discharge Summary Admission Date: May 27, 2018 at 00:19 Discharge Date: May 29, 2018 Discharge Disposition: Home Principal Diagnosis: Acute pancreatitis, idiopathic Problems/Secondary Diagnoses: Melony UTI constipation Headache hepatic steatosis Procedures: none Consultations: none Medication Reconciliation New Medications: Fluconazole (Diflucan) 100 Mg Tab 1 TAB PO DAILY for 6 Days, #6 TAB Ibuprofen (Ibuprofen) 400 Mg Tab 400 MG PO TID PRN for Headache for 7 Days, #21 TABS 0 Refills Polyethylene (Miralax) 17 Gm Pow 17 GM PO DAILY PRN for Constipation, #1 BTL 3 Refills Continued Medications: Pantoprazole (Protonix) 40 Mg Tab 40 MG PO QPM PRN for ACID REFLUX, #30 TAB Discontinued Medications: Nitrofurantoin Monohyd Macrocr (Macrobid) 100 Mg Cap 100 MG PO Q6, #6 CAP Phenazopyridine Hcl (Pyridium) 100 Mg Tab 100 MG PO TID PRN for Bladder pain, TAB Discharge Exam Patient feeling much better after 24 hours of NSS at 200cc/hr. She was able to move her bowels three times after her enema yesterday. Tolerating low fiber diet, no abdominal pain or back pain. Ambulating a lot in the hallway, wanting to leave. Discussed that the macrobid could have caused the pancreatitis. No other clear etiology. Review of Systems: Constitutional: No fever, No chills, No sweats, No weight loss, No weakness , No fatigue, No problem reported ENT: No hearing loss, No unusual epistaxis, No nasal symptoms, No sore throat, No tinnitus, No dental problems, No trouble swallowing, No problem reported Respiratory: No cough, No sputum, No wheezing, No shortness of breath, No dyspnea on exertion, No dyspnea at rest, No hemoptysis, No problem reported Cardiovascular: No chest pain, No orthopnea, No PND, No edema, No claudication, No palpitations, No problem reported Abdomen: No pain, No nausea, No vomiting, No diarrhea, No constipation, No GI bleeding, No problem reported Musculoskeletal: + joint pain (mild back pain), No muscle pain, No swelling , No calf pain, No problem reported Genitourinary - Female: No dysuria, No urinary frequency, No urinary urgency , No urinary incontinence, No urinary retention, No hematuria Neurologic: No memory loss, No paralysis, No weakness, No numbness/tingling , No vertigo, No balance problems, No problem reported Psychiatric: No depression symptoms, No anhedonism, No anxiety, No insomnia , No substance abuse, No problem reported Endocrine: No fatigue, No excessive thirst, No excessive urination, No problem reported Hematologic / Lymphatic: No abnormal bleeding/bruising, No clotting problems , No swollen lymph nodes, No night sweats, No problem reported Integumentary: No rash, No itch, No new/changing skin lesions, No color change, No bleeding, No problem reported Physical Exam: General Appearance: no apparent distress, + obese Eyes: normal inspection, EOMI, sclerae normal ENT: normal ENT inspection, hearing grossly normal, pharynx normal Neck: supple, no adenopathy, no JVD, trachea midline Respiratory/Chest: chest non-tender, lungs clear, normal breath sounds, no respiratory distress, no accessory muscle use Cardiovascular: regular rate, rhythm, no edema, no gallop, no JVD, no murmur , normal peripheral pulses Abdomen / GI: normal bowel sounds, non tender, soft, no organomegaly, no pulsatile mass Extremities: normal inspection, no calf tenderness, normal capillary refill , no pedal edema, normal range of motion, non-tender, pelvis stable 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 Acute Pancreatitis - elevated lipase, CT evidence of pancreatic tail inflammation. Etiology unclear. Patient with no gallstones, no EtOH. Normal triglycerides. Was recently treated for UTI with Cipro then Macrobid and Pyridium - possibly medication induced with Macrobid, low incidence but still possible most likely the pancreatitis is idiopathic and will resolve lipase down to 1000 on the day of discharge, symptoms nearly resolved completely tolerating low fiber diet, no pain, no nausea d/c to home, instructed to stay well hydrated over next several days, get rest, advance diet as tolerated but avoid excess fatty foods if she would get a second bout of pancreatitis in the future then would consult gastroenterology 2. Melony UTI will complete a 7 day course of Diflucan as outpatient no dysuria or suprapubic pain 3. GERD - stable, chronic -Protonix 40mg IV daily. 4. Constipation: resolved after two days of Miralax and then an enema moved bowels three times instructed to use Miralax as needed in the future 5. Hepatic steatosis: educated patient on this finding discussed importance of weight loss, even 10% of body weight could help Total Time Spent: Greater than 30 minutes This includes examination of the patient, discharge planning, medication reconciliation, and communication with other providers. Discharge Instructions Please refer to the electronic Patient Visit Report (Discharge Instructions) for additional information. Follow-Up Dr. Paulson in one week Additional Copies To Micah Paulson D.O.
== END 2018-05-29 14:52 | disposition home or self-care (01) | DRG 439 ==
LOC: C.EDB 20:59 → C.MS2W 05-27 00:19 → ENRESERV 05-27 00:51
PROVIDERS: ADMIT Internal Medicine; ATTEND Internal Medicine
DX: K85.90 Acute pancreatitis without necrosis or infection, unspecified (principal); B37.49 Other urogenital candidiasis; K21.9 Gastro-esophageal reflux disease without esophagitis; K59.00 Constipation, unspecified; K76.0 Fatty (change of) liver, not elsewhere classified